=== PATIENT | female | born 1940 | race Caucasian/White ===

== ENCOUNTER 2024-01-09 10:59 | Emergency (ER) | payer OTHER, SELFPAY ==
[2024-01-09 11:04] VITALS: BP 189/93
[2024-01-09 11:20] VITALS: BMI 27.7
[2024-01-09 11:40] VITALS: BP 148/78
[2024-01-09 11:55] LABS: % Basophils 0.7 % (0-2); % Eosinophils 0.4 % (0-6); % Immature Granulocytes 0.2 % (0-0.5); % Lymphocytes 21.8 % (20.5-51.1); % Neutrophils 69.9 % (42.2-75.2); Absolute Monocytes 0.3 10^3/uL (0.1-0.6); Absolute Neutrophils 3.2 10^3/uL (1.4-6.5); Hematocrit 39.9 % (37.0-47.0); Hemoglobin 13.8 g/dL (12.0-16.0); Mean Corp Hgb Conc. 34.6 g/dL (33.0-37.0); Mean Corpuscular Volume 95.5 fL (81.0-99.0); Mean Platelet Volume 8.9 fL (7.4-10.4); Nucleated Red Blood Cells % 0 %; Platelet Count 128 10^3/uL (130-400); Red Blood Cell Count 4.18 10^6/uL (4.20-5.40); Red Cell Dist. Width 13.2 % (11.5-14.5); White Blood Cell Count 4.6 10^3/uL (4.8-10.8)
[2024-01-09 12:00] VITALS: BP 155/63
[2024-01-09 12:12] LABS: ALT (SGPT) 19 U/L (0-35); AST (SGOT) 29 U/L (14-36); Albumin 4.6 g/dl (3.5-5.0); Alkaline Phosphatase 52 U/L (38-126); Blood Urea Nitrogen 22 mg/dl (7-17); Carbon Dioxide 27 mmol/L (22-30); Chloride 104 mmol/L (98-107); Estimated Creatinine Clearance 38 ml/min; Glucose 106 mg/dl (70-99); Lipase 182 U/L (23-300); Potassium 4.5 mmol/L (3.5-5.1); Sodium 142 mmol/L (135-145); Total Bilirubin 0.8 mg/dl (0.2-1.3); Total Protein 7.4 g/dl (6.3-8.2); eGFR 50.48
[2024-01-09 13:00] VITALS: BP 134/83
[2024-01-09 13:50] LABS: Urine Albumin Negative (Neg - Trace); Urine Bilirubin Negative (Negative); Urine Character Clear (Clear); Urine Color Yellow; Urine Glucose Negative (Negative); Urine Ketone Negative (Negative); Urine Leukocyte Trace (Negative); Urine Nitrite Negative (Negative); Urine Occult Blood Negative (Negative); Urine Urobilinogen Negative (Neg - 1+)
[2024-01-09 14:00] VITALS: BP 146/61
[2024-01-09 14:08] LABS: Urine Red Blood Cell 0-2 /HPF (0-2); Urine Squamous Cell 16-20 /LPF (Few)
--- NOTE | 2024-01-09 14:46 | ED.GENMED ---
History of Present Illness
General
Chief Complaint: Flank Pain
Source: patient and family
Exam Limitations: none
Time Seen by Provider: 01/09/24 11:21
History of Present Illness
History of Present Illness:
83-year-old female presents with her daughter concerned about pain in the right chest wall. Patient states it radiates around to the back. Patient is concerned because she has a history of cholangiocarcinoma that was treated with chemoradiation in
the past and they were watching it to see if it would come back. Patient states that symptoms have been ongoing for about 4 to 5 days. no hemoptysis. No shortness of breath. No known injury. States she did wake up with it wonders if she slept
differently
Past History
Past History
ED Past Medical History: Cancer (liver tumor. Cholangiocarcinoma) and Hypercholesterolemia
ED Past Surgical History: Bowel resection and Gynecological
Social History
Tobacco: Non-smoker
Alcohol: Occasional
Drug: None
Personal:
Living: alone
Family History
Family History: Other
Phy Exam
Physical Exam
Physical Exam:
CONSTITUTIONAL Patient alert and oriented to person, place and time. Well-appearing. Vital signs reviewed.
HEAD atraumatic, normocephalic.
EYES eyelids normal to inspection, Extraocular muscles intact, Conjunctiva normal, Sclera normal.
NECK normal range of motion, Trachea midline, no jugular venous distention.
RESPIRATORY CHEST No respiratory distress noted, Chest expansion equal, Bilateral breath sounds clear.
CARDIOVASCULAR regular rate and rhythm, Heart sounds normal. Focal chest wall tenderness in the right lower ribs. Clearly reproduces the patient's symptoms
ABDOMEN abdomen nontender, Bowel sounds normal. No distention.
BACK normal inspection, no obvious deformities
UPPER EXTREMITY range of motion normal, Motor strength normal, no cyanosis, no edema.
LOWER EXTREMITY range of motion normal, Motor strength normal, no cyanosis, no edema.
NEURO Speech normal, No focal motor deficits, Greg coma scale 15, Memory normal, Cranial Nerves intact to screening exam.
SKIN skin warm, dry, and normal in color.
Course
Orders/Labs/Results
Orders:
Orders
01/09/24 11:37
CT Abd/Pel (IV only)-[facility] only Urgent
Comment:
Reason For Exam: R flank pain, h/o cholangiocarcinoma
01/09/24 11:45
Complete Blood Count/With Diff Urgent
Comprehensive Metabolic Panel Urgent
Lipase Urgent
Urinalysis Reflex To Culture Urgent
Date Specimen was Collected: 01/09/24
Time Specimen was Collected: 11:38
Urine Microscopic Reflex Cult Urgent
Abnormal Lab Results
01/09/24
11:45
WBC 4.6 L 10^3/uL
(4.8-10.8)
RBC 4.18 L 10^6/uL
(4.20-5.40)
MCH 33.0 H pg
(27.0-31.0)
Plt Count 128 L 10^3/uL
(130-400)
Absolute Lymphs (auto) 1.0 L 10^3/uL
(1.2-3.4)
BUN 22 H mg/dl
(7-17)
Creatinine 1.1 H mg/dL
(0.6-1.0)
Glucose 106 H mg/dl
(70-99)
Leukocyte Esterase Rfl Trace A
(Negative)
01/09/24 11:45
01/09/24 11:45
Vital Signs
Initial and Last Documented VS:
Initial Vital Signs
Temp Pulse Resp BP Pulse Ox
98.2 F 68 16 189/93 97
01/09/24 11:04 01/09/24 11:04 01/09/24 11:04 01/09/24 11:04 01/09/24 11:04
Last Documented Vital Signs
Temp Pulse Resp BP Pulse Ox
98.2 F 68 16 132/90 97
01/09/24 11:04 01/09/24 11:04 01/09/24 11:04 01/09/24 15:00 01/09/24 15:15
MDM/Problems Addressed
MDM/Problems Addressed:
Chest wall pain
*Radiology
Radiology exam reviewed: radiology read reviewed
*Pulse Oximetry
Patient hypoxic: no
*Critical Care Note
Total Time (30-74mins, 75-104mins- exclusive of procedures): Not Applicable
Data Reviewed
Source: patient
Further Testing Considered But Not Given:
Consider CTA but no pleuritic pain and symptoms clearly reproducible
Patient Management
Escalation/DeEscalation of care consider admission/obs:
Radiology reads improvement of tumor. Patient is well-appearing and symptoms are clearly reproducible. Labs okay. Okay for discharge and outpatient
ED Attending Note
-
Portions of this chart may have been created with voice recognition software.� Occasional wrong word or��sound alike� substitutions may have occurred due to the inherent limitations of voice recognition software.
Discharge Plan
Departure
Patient Disposition: Home (Routine Discharge)
Date of Disposition: 01/09/24
Time of Disposition: 15:46
Patient with high blood pressure during this ER visit?: Yes
Discharge Problem:
Chest wall pain
Instructions: Chest Pain PCP Follow Up, BLOOD PRESSURE
Prescriptions:
No Action
Xarelto 20 MG tablet
20 mg PO QPM
acetaminophen 325 MG tablet
650 mg PO Q4HPRN PRN (Reason: mild pain)
magnesium oxide 500 MG tablet
500 mg PO DAILY
pyridoxine (vitamin B6) [Vitamin B-6] 100 MG tablet
100 mg PO DAILY
biotin 1 MG tablet
1 mg PO QPM
coenzyme [id number] E 1 CAP capsule
1 cap PO DAILY
cholecalciferol (vitamin D3) 1,000 UNITS tablet
1,000 units PO DAILY
alpha lipoic acid 100 MG capsule
100 mg PO DAILY
turmeric root extract 500 MG capsule
500 mg PO DAILY
Referrals:
Taurus Larson, DO [Family Provider] -
Activity Restrictions/Additional Instructions:
Please see your doctor in the next 2 to 3 days for follow-up and reevaluation. Return immediately for worsening symptoms, shortness of breath, fevers, weakness or any other concerns.
Interventions
Interventions:
*Risk Screen - Suicide Last Done: 01/09/24 11:04
*General Assessment Last Done: 01/09/24 11:04
*Neglect/Abuse Screening Last Done: 01/09/24 11:04
ED- Fall Risk Assessment Last Done: 01/09/24 11:30
*ED COVID-19 Vaccine History Last Done: 01/09/24 11:04
*Nursing Disposition Last Done: 01/09/24 16:16
CW-Ausnrd-Snnuzfpqzm Assessment Last Done: 01/09/24 11:20
ED-Female Genitourinary Assessment Last Done: 01/09/24 11:20
Discharge Date and Time
Discharge Date/Time: 01/09/24 16:17
Print Language: ARGENTINE
[2024-01-09 15:00] VITALS: BP 132/90
== END 2024-01-09 16:17 | disposition home or self-care (01) ==
LOC: EMR 10:59
PROVIDERS: EMERGENCY PHYSICIAN Emergency Medicine; FAMILY PHYSICIAN Family Medicine
DX: R07.89 Other chest pain (principal); E78.00 Pure hypercholesterolemia, unspecified; Z85.05 Personal history of malignant neoplasm of liver; Z92.3 Personal history of irradiation
CPT/HCPCS: 99284; 74177; 80053; 81003; 81015; 83690; 85025; Q9967

== ENCOUNTER → 2024-06-01 14:48 | Outpatient (REF) | payer OTHER, SELFPAY | LOC: RAD 14:48 | PROVIDERS: ATTENDING PHYSICIAN Nurse Practitioner Family; FAMILY PHYSICIAN Family Medicine | DX: M79.604 Pain in right leg (principal); S82.831A Other fracture of upper and lower end of right fibula, initial encounter for closed fracture; R60.0 Localized edema | CPT/HCPCS: 93970 ==